=== PATIENT | female | born 1955 | race Caucasian/White ===

== ENCOUNTER 2019-10-03 08:19 | Outpatient (CLI) | payer MEDICARE, SELFPAY ==
[2019-10-03] MEDS: ZOLEDRONIC ACID 5 MG/100 ML 100 ML 400 MG IVPB (09:15)
--- NOTE | 2019-10-03 09:37 | PC.NURSE ---
Here for Reclast infusion. Medications explained and handouts given on med. No concerns voiced. Reclast infusion administered. Patient tolerated it well. Safe exit of hospital.
== END 2019-10-03 08:20 | disposition home or self-care (01) ==
LOC: CHSTREATRM 08:23
PROVIDERS: PCP Internal Medicine; Visit Provider Internal Medicine
DX: M81.0 Age-related osteoporosis without current pathological fracture (principal)
CPT/HCPCS: 96365; J3489

== ENCOUNTER 2020-02-11 07:44 | Outpatient (CLI) | payer MEDICARE, SELFPAY ==
[2020-02-13 12:13] LABS: SARS-CoV-2 RNA PCR Positive
== END 2020-02-11 07:45 | disposition home or self-care (01) ==
LOC: CHSLAB 07:48
PROVIDERS: PCP Internal Medicine; Visit Provider Internal Medicine
DX: U07.1 COVID-19 (principal)
CPT/HCPCS: 87635; C9803; U0003

== ENCOUNTER 2020-10-09 10:55 | Outpatient (CLI) | payer MEDICARE, SELFPAY ==
[2020-10-09] MEDS: ZOLEDRONIC ACID 5 MG/100 ML 100 ML 400 MG IVPB (11:33)
--- NOTE | 2020-10-09 12:45 | PC.NURSE ---
Tolerated yearly Reclast IV infusion well. No concerns voiced. Safe exit of hospital.
== END 2020-10-09 10:56 | disposition home or self-care (01) ==
PROVIDERS: PCP Internal Medicine; Visit Provider Internal Medicine
DX: M81.0 Age-related osteoporosis without current pathological fracture (principal)
CPT/HCPCS: 96365; J3489

== ENCOUNTER 2020-10-10 07:28 | Outpatient (CLI) | payer MEDICARE, SELFPAY ==
[2020-10-10 08:02] LABS: Hematocrit 37.3 % (35.0-42.0); Hemoglobin 12.6 g/dL (11.7-13.8); Mean Corpuscular HGB Conc 33.8 g/dL (32.0-36.0); Mean Corpuscular Hemoglobin 29.3 pg (27.0-31.0); Mean Corpuscular Volume 86.7 fL (78.0-102.0); Mean Platelet Volume 10.2 fl (9.2-11.8); Platelet Count Result 193 K/mm3 (150-420); Red Cell Distribution Width 12.7 % (11.6-14.4); White Blood Count 3.9 K/mm3 (4.8-10.8)
[2020-10-10 08:47] LABS: Band Neutrophils Percent 1 % (0-6); Basophils Percent Manual 0 % (0-1); Eosinophils Percent Manual 0 % (1-6); Lymphocytes Absolute Manual 0.97 K/mm3 (1.1-4.5); Lymphocytes Percent Manual 25 % (18-44); Monocytes Absolute Manual 0.46 K/mm3 (0.1-0.90); Monocytes Percent Manual 12 % (3-9); Neutrophils Absolute Manual 2.34 K/mm3 (1.7-7.2); Neutrophils Percent Manual 59 % (46-73); Total Cells Counted 100
[2020-10-10 08:48] LABS: Platelet Estimate Adequate (Adequate)
[2020-10-10 08:49] LABS: Alanine Aminotransferase 36 U/L (14-59); Alkaline Phosphatase 59 U/L (46-116); Anion Gap 8 mmol/L (8-16); Aspartate Amino Transferase 18 U/L (15-37); Bilirubin,Total 0.6 mg/dL (0.00-1.00); Blood Urea Nitrogen 25 mg/dL (7-18); Calcium 8.6 mg/dL (8.5-10.1); Carbon Dioxide 27 mmol/L (21-32); Chloride 104 mmol/L (98-108); Cholesterol 183 mg/dL (0-200); Estimated Glomerular Filt Rate > 60; Free T3 2.89 pg/mL (2.18-3.98); Glucose 91 mg/dL (70-99); HDL Direct 66 mg/dL (40-60); LDL Cholesterol Calculated 102 mg/dL (<130); Osmolality Calculated 292 mOsm/kg (285-295); Potassium 4.1 mmol/L (3.5-5.1); Sodium 139 mmol/L (136-145); Thyroid Stimulating Hormone 2.52 uIU/mL (0.36-3.74); Triglycerides 75 mg/dL (0-150)
[2020-10-10 13:45] LABS: Add Urine Microscopic? NO; Appearance Urine Clear (Clear); Bilirubin Urine Negative (Negative); Blood Urine Negative (Negative); Color Urine Yellow (Yellow); Glucose Urine UA Negative (Negative); Ketones Urine Negative (Negative); Leukocyte Esterase Ur Negative (Negative); Nitrate Urine Negative (Negative); Protein Urine Negative (Negative); Urobilinogen Urine 0.2 mg/dL (0.2-1.0); pH Urine 5.5 (5.0-8.0)
[2020-10-14 11:30] LABS: Vitamin D 25 Hydroxy 32 ng/mL (30-100)
== END 2020-10-10 07:29 | disposition home or self-care (01) ==
PROVIDERS: PCP Internal Medicine; Visit Provider Internal Medicine
DX: M81.0 Age-related osteoporosis without current pathological fracture (principal); Z00.00 Encounter for general adult medical examination without abnormal findings; Z79.899 Other long term (current) drug therapy
CPT/HCPCS: 36415; 80053; 80061; 81003; 82306; 84439; 84443; 84481; 85025

== ENCOUNTER 2020-10-25 08:35 | Outpatient (CLI) | payer MEDICARE, SELFPAY ==
--- NOTE | ~2020-10-25 | MM_ITS ---
EXAMINATION: MM screening [facility] BI w esequiel HISTORY: Screening mammogram TECHNIQUE: Craniocaudal and mediolateral oblique 3-D tomosynthesis images were obtained and synthetic 2-D images were generated. CAD analysis was submitted and interpreted. COMPARISON: 01/13/2019, 01/10/2019, 04/07/2017 BREAST PARENCHYMAL COMPOSITION: The breasts are heterogeneously dense, which may obscure small masses . FINDINGS: There is no evidence of suspicious mass, calcification, or architectural distortion to sugg est malignancy in either breast. There has been no suspicious interval change. IMPRESSION: 1. No mammographic evidence of malignancy. 2. Recommend routine screening mammography in one year. BI-RADS Category 1: Negative Reviewed, dictated and finalized at location A.
== END 2020-10-25 08:36 | disposition home or self-care (01) ==
LOC: CHSIMG 08:37
PROVIDERS: PCP Internal Medicine; Visit Provider Internal Medicine
DX: Z12.31 Encounter for screening mammogram for malignant neoplasm of breast (principal)
CPT/HCPCS: 77063; 77067

== ENCOUNTER 2020-11-12 08:57 | Outpatient (CLI) | payer MEDICARE, SELFPAY ==
[2020-11-12 09:22] LABS: Basophils Absolute Auto 0.03 K/mm3 (0.00-0.10); Basophils Percent Auto 0.7 % (0.0-1.0); Eosinophils Percent Auto 2.3 % (1.0-6.0); Hematocrit 37.5 % (35.0-42.0); Hemoglobin 12.8 g/dL (11.7-13.8); Immature Granulocyte Absolute 0.02 K/mm3 (0.00-0.00); Immature Granulocyte Percent A 0.5 % (0.0-0.0); Lymphocytes Absolute Auto 1.18 K/mm3 (1.10-4.50); Lymphocytes Percent Auto 27.1 % (18.0-42.0); Mean Corpuscular HGB Conc 34.1 g/dL (32.0-36.0); Mean Corpuscular Hemoglobin 29.7 pg (27.0-31.0); Mean Platelet Volume 10.4 fl (9.2-11.8); Monocytes Absolute Auto 0.43 K/mm3 (0.10-0.90); Monocytes Percent Auto 9.9 % (2.0-11.0); Neutrophils Absolute Auto 2.6 K/mm3 (1.7-7.2); Neutrophils Percent Auto 59.5 % (50.0-70.0); Platelet Count Result 198 K/mm3 (150-420); Red Blood Count 4.31 M/mm3 (4.20-5.40); Red Cell Distribution Width 12.1 % (11.6-14.4); White Blood Count 4.4 K/mm3 (4.8-10.8)
== END 2020-11-12 08:58 | disposition home or self-care (01) ==
LOC: CHSLAB 08:59
PROVIDERS: PCP Internal Medicine; Visit Provider Internal Medicine
DX: D72.819 Decreased white blood cell count, unspecified (principal)
CPT/HCPCS: 36415; 85025

== ENCOUNTER 2021-07-17 12:34 | Outpatient (CLI) | payer MEDICARE, SELFPAY ==
--- NOTE | ~2021-07-17 | DEXA_ITS ---
Bone Density Report Name: GERARDO MOYA Age: 65 Sex: Female Ethnicity: White Date of : 1955 Indication: osteopenia; monitoring treatment; height loss; prior fracture; Referring Provider: Ariella Nelson Study: Bone densitometry was performed. Exam Date: July 17, 2021 Accession number: [id number] Bone Density: Region BMD T-score Z-score Classification AP Spine(L1-L4) 0.836 -1.9 0.0 Osteopenia Femoral Neck (Left) 0.654 -1.8 -0.1 Osteopenia Total Hip (Left) 0.788 -1.3 0.1 Osteopenia Femoral Neck (Right) 0.668 -1.6 0.0 Osteopenia Total Hip (Right) 0.839 -0.8 0.5 Normal Femoral Neck Mean 0.661 -1.7 0.0 Osteopenia Total Hip Mean 0.814 -1.1 0.3 Osteopenia World Health Organization criteria for BMD impression classify patients as: Normal (T-score at or above -1.0), Osteopenia (T-score between -1.0 and -2.5), or Osteoporosis (T-score at or below -2.5). 10-year Fracture Risk: FRAX not reported because: Treated for osteoporosis Previous Exams: Region Exam Age BMD T-score BMD Change BMD Change Date g/cm2 vs Baseline vs Previous AP Spine (L1-L4) 07/17/2021 65 0.836 -1.9 -0.089 (-9.6%) -0.041 (-4.7%) 06/23/2019 63 0.877 -1.5 -0.048 (-5.2%) 0.035 (4.1%)* 03/25/2017 61 0.842 -1.9 -0.083 (-9.0%) -0.075 (-8.2%) 11/05/2012 57 0.917 -1.2 -0.008 (-0.9%) 0.025 (2.8%)* 08/06/2010 54 0.891 -1.4 -0.033 (-3.6%) -0.033 (-3.6%) 04/30/2007 51 0.925 -1.1 Total Hip(Left) 07/17/2021 65 0.788 -1.3 -0.133 (-14.4% 0.002 (0.3%)# 06/23/2019 63 0.786 -1.3 -0.135 (-14.7% -0.063 (-7.4%) 03/25/2017 61 0.849 -0.8 -0.072 (-7.9%) -0.012 (-1.4%) 11/05/2012 57 0.861 -0.7 -0.060 (-6.5%) -0.025 (-2.8%) 08/06/2010 54 0.886 -0.5 -0.035 (-3.9%) -0.035 (-3.9%) 04/30/2007 51 0.921 -0.2 Total Hip(Right) 07/17/2021 65 0.839 -0.8 -0.028 (-3.2%) N/A 06/23/2019 63 0.000 0.0 N/A N/A 11/05/2012 57 0.823 -1.0 -0.043 (-5.0%) -0.028 (-3.3%) 08/06/2010 54 0.852 -0.7 -0.015 (-1.7%) -0.015 (-1.7%) 04/30/2007 51 0.867 -0.6 *Denotes significance at 95% confidence level, LSC for AP Spine = 0.022 g/cm2, LSC for Total Hip = 0.027 g/cm2 # Denotes dissimilar scan types or analysis methods Clinical Information Provided by Patient: Has had a low trauma fracture Is being treated for osteoporosis Has used the following medications: Reclast (i.e. zoledronate), Vitamin D Patient maximum height
== END 2021-07-17 12:35 | disposition home or self-care (01) ==
LOC: CHSIMG 12:37
PROVIDERS: PCP Internal Medicine; Visit Provider Internal Medicine
DX: M81.0 Age-related osteoporosis without current pathological fracture (principal)
CPT/HCPCS: 77080

== ENCOUNTER 2021-10-08 10:09 | Outpatient (CLI) | payer MEDICARE, SELFPAY | END 2021-10-08 10:10 | disposition home or self-care (01) | LOC: CHSOUTPT 10:15 | PROVIDERS: PCP Internal Medicine; Visit Provider Specialist | DX: C44.529 Squamous cell carcinoma of skin of other part of trunk (principal) | CPT/HCPCS: 88305 ==

== ENCOUNTER 2021-10-22 08:28 | Outpatient (CLI) | payer MEDICARE, SELFPAY ==
[2021-10-22] MEDS: ZOLEDRONIC ACID 5 MG/100 ML 100 ML 400 MG IVPB (08:55)
[2021-10-22 08:59] VITALS: BP 130/78; PULSE 80; RESP 14; TEMP 36.6; O2SAT 98
[2021-10-22 09:00] VITALS: BMI 28.3
--- NOTE | 2021-10-22 09:03 | PC.NURSE ---
Patient here for yearly IV Reclast infusion. Education on med given. NO concerns voiced. IV Reclast administered. SEE MAR. Safe exit of hospital.
== END 2021-10-22 08:29 | disposition home or self-care (01) ==
LOC: CHSTREATRM 08:36
PROVIDERS: PCP Internal Medicine; Visit Provider Internal Medicine
DX: M81.0 Age-related osteoporosis without current pathological fracture (principal)
CPT/HCPCS: 96365; J3489

== ENCOUNTER 2021-10-28 07:57 | Outpatient (CLI) | payer MEDICARE, SELFPAY ==
--- NOTE | ~2021-10-28 | MM_ITS ---
EXAMINATION: MM screening [facility] BI w esequiel HISTORY: Screening TECHNIQUE: Craniocaudal and mediolateral oblique 3-D tomosynthesis images were obtained and synthetic 2-D images were generated. CAD analysis was submitted and interpreted. COMPARISON: Comparison to multiple prior studies sequentially, with oldest reviewed study dated 08/20. BREAST PARENCHYMAL COMPOSITION: There are scattered areas of fibroglandular density. FINDINGS: There is no evidence of suspicious mass, calcification, or architectural distortion to sugg est malignancy in either breast. There has been no suspicious interval change. IMPRESSION: 1. No mammographic evidence of malignancy. 2. Recommend routine screening mammography in one year. BI-RADS Category 1: Negative Reviewed, dictated and finalized at location A.
== END 2021-10-28 07:58 | disposition home or self-care (01) ==
LOC: CHSIMG 07:59
PROVIDERS: PCP Internal Medicine; Visit Provider Internal Medicine
DX: Z12.31 Encounter for screening mammogram for malignant neoplasm of breast (principal)
CPT/HCPCS: 77063; 77067

== ENCOUNTER 2021-12-11 07:50 | Outpatient (CLI) | payer MEDICARE, SELFPAY ==
[2021-12-11 08:06] LABS: Basophils Absolute Auto 0.02 K/mm3 (0.00-0.10); Basophils Percent Auto 0.4 % (0.0-1.0); Eosinophils Absolute Auto 0.18 K/mm3 (0.02-0.50); Eosinophils Percent Auto 3.7 % (1.0-6.0); Hematocrit 40.2 % (35.0-42.0); Hemoglobin 13.8 g/dL (11.7-13.8); Immature Granulocyte Absolute 0.02 K/mm3 (0.00-0.00); Immature Granulocyte Percent A 0.4 % (0.0-0.0); Lymphocytes Absolute Auto 1.33 K/mm3 (1.10-4.50); Mean Corpuscular HGB Conc 34.3 g/dL (32.0-36.0); Mean Corpuscular Hemoglobin 30.2 pg (27.0-31.0); Mean Platelet Volume 9.5 fl (9.2-11.8); Monocytes Absolute Auto 0.52 K/mm3 (0.10-0.90); Monocytes Percent Auto 10.5 % (2.0-11.0); Neutrophils Absolute Auto 2.9 K/mm3 (1.7-7.2); Platelet Count Result 203 K/mm3 (150-420); Red Blood Count 4.57 M/mm3 (4.20-5.40); Red Cell Distribution Width 11.9 % (11.6-14.4); White Blood Count 4.9 K/mm3 (4.8-10.8)
[2021-12-11 08:22] LABS: Alanine Aminotransferase 32 U/L (14-59); Albumin Level 3.9 g/dL (3.4-5.0); Alkaline Phosphatase 56 U/L (46-116); Anion Gap 6 mmol/L (8-16); Aspartate Amino Transferase 14 U/L (15-37); Bilirubin,Total 0.6 mg/dL (0.00-1.00); Blood Urea Nitrogen 20 mg/dL (7-18); Calcium 8.5 mg/dL (8.5-10.1); Carbon Dioxide 28 mmol/L (21-32); Chloride 105 mmol/L (98-108); Cholesterol 195 mg/dL (0-200); Estimated Glomerular Filt Rate > 60; Glucose 95 mg/dL (70-99); HDL Direct 77 mg/dL (40-60); LDL Cholesterol Calculated 101 mg/dL (<130); Osmolality Calculated 290 mOsm/kg (285-295); Potassium 4.2 mmol/L (3.5-5.1); Sodium 139 mmol/L (136-145); Total Protein 7.1 g/dL (6.4-8.2); Triglycerides 83 mg/dL (0-150)
[2021-12-11 11:37] LABS: Add Urine Microscopic? YES; Appearance Urine Clear (Clear); Bilirubin Urine Negative (Negative); Blood Urine Negative (Negative); Color Urine Light Yellow (Yellow); Glucose Urine UA Negative (Negative); Ketones Urine Negative (Negative); Leukocyte Esterase Ur Trace (Negative); Nitrate Urine Negative (Negative); Protein Urine Negative (Negative); Specific Grav Ur <= 1.005 (1.010-1.020); Urobilinogen Urine 0.2 mg/dL (0.2-1.0)
[2021-12-11 11:42] LABS: Bacteria Urine Trace /hpf; RBC Urine None seen /hpf (0-2); Squamous Epithelial Cell Urine Few /hpf (Few); WBC Urine 0-3 /hpf (0-3)
[2021-12-16 07:58] LABS: Vitamin D 25 Hydroxy 27 ng/mL (30-100)
== END 2021-12-11 07:51 | disposition home or self-care (01) ==
LOC: CHSLAB 07:52
PROVIDERS: PCP Internal Medicine; Visit Provider Internal Medicine
DX: M81.0 Age-related osteoporosis without current pathological fracture (principal); Z00.00 Encounter for general adult medical examination without abnormal findings; Z13.6 Encounter for screening for cardiovascular disorders; Z79.899 Other long term (current) drug therapy
CPT/HCPCS: 36415; 80053; 80061; 81001; 82306; 85025

== ENCOUNTER 2022-10-28 08:50 | Outpatient (CLI) | payer MEDICARE, SELFPAY ==
[2022-10-28 09:07] VITALS: BMI 28.2
[2022-10-28] MEDS: ZOLEDRONIC ACID 5 MG/100 ML 100 ML 400 MG IVPB (09:10)
[2022-10-28 09:18] VITALS: BP 129/68; PULSE 68; RESP 14; TEMP 36.4; O2SAT 99
--- NOTE | 2022-10-28 10:48 | PC.NURSE ---
Patient here for yearly Reclast infusion. Education given. No concerns voiced. IV Reclast infusion administered. SEE MAR. Tolerated well. Safe exit of hospital per ambulatory.
== END 2022-10-28 08:51 | disposition home or self-care (01) ==
LOC: CHSTREATRM 08:54
PROVIDERS: PCP Internal Medicine; Visit Provider Internal Medicine
DX: M81.0 Age-related osteoporosis without current pathological fracture (principal)
CPT/HCPCS: 96374; J3489

== ENCOUNTER 2022-11-28 15:32 | Outpatient (CLI) | payer MEDICARE, SELFPAY ==
[2022-11-28 15:50] LABS: Basophils Absolute Auto 0.03 K/mm3 (0.00-0.10); Basophils Percent Auto 0.5 % (0.0-1.0); Eosinophils Absolute Auto 0.13 K/mm3 (0.02-0.50); Immature Granulocyte Absolute 0.02 K/mm3 (0.00-0.00); Immature Granulocyte Percent A 0.3 % (0.0-0.0); Lymphocytes Absolute Auto 1.67 K/mm3 (1.10-4.50); Lymphocytes Percent Auto 25.8 % (18.0-42.0); Mean Corpuscular HGB Conc 34.1 g/dL (32.0-36.0); Mean Corpuscular Volume 85.1 fL (78.0-102.0); Monocytes Absolute Auto 0.44 K/mm3 (0.10-0.90); Monocytes Percent Auto 6.8 % (2.0-11.0); Neutrophils Absolute Auto 4.2 K/mm3 (1.7-7.2); Neutrophils Percent Auto 64.6 % (50.0-70.0); Platelet Count Result 218 K/mm3 (150-420); Red Blood Count 4.82 M/mm3 (4.20-5.40); Red Cell Distribution Width 12.6 % (11.6-14.4); White Blood Count 6.5 K/mm3 (4.8-10.8)
[2022-11-28 16:21] LABS: Alanine Aminotransferase 34 U/L (14-59); Albumin Level 4.4 g/dL (3.4-5.0); Alkaline Phosphatase 71 U/L (46-116); Anion Gap 9 mmol/L (8-16); Aspartate Amino Transferase 23 U/L (15-37); Bilirubin,Total 0.4 mg/dL (0.00-1.00); Blood Urea Nitrogen 21 mg/dL (7-18); Calcium 9.2 mg/dL (8.5-10.1); Carbon Dioxide 28 mmol/L (21-32); Chloride 103 mmol/L (98-108); Estimated Glomerular Filt Rate 59; Glucose 89 mg/dL (70-99); Osmolality Calculated 292 mOsm/kg (285-295); Potassium 4.3 mmol/L (3.5-5.1); Sodium 140 mmol/L (136-145); Total Protein 7.5 g/dL (6.4-8.2)
[2022-12-03 15:00] LABS: Lyme Disease Ab (IgM), Blot Negative (Negative); Lyme Disease Ab(IgG), Blot Negative (Negative)
== END 2022-11-28 15:33 | disposition home or self-care (01) ==
PROVIDERS: PCP Internal Medicine; Visit Provider Nurse Practitioner Family
DX: T14.8XXA Other injury of unspecified body region, initial encounter (principal); W57.XXXA Bitten or stung by nonvenomous insect and other nonvenomous arthropods, initial encounter
CPT/HCPCS: 36415; 80053; 85025; 86617

== ENCOUNTER 2022-12-09 08:26 | Outpatient (CLI) | payer MEDICARE, SELFPAY ==
--- NOTE | ~2022-12-09 | MM_ITS ---
EXAMINATION: MM screening [facility] BI w esequiel HISTORY: Screening mammogram TECHNIQUE: Craniocaudal and mediolateral oblique 3-D tomosynthesis images were obtained and synthetic 2-D images were generated. CAD analysis was submitted and interpreted. COMPARISON: 10/28/2021, 10/25/2020 BREAST PARENCHYMAL COMPOSITION:There are scattered areas of fibroglandular density. FINDINGS: There are benign intramammary lymph nodes at the far posterior right breast. No suspicious mass, calcification, or architectural distortion are identified in either breast to suggest malignanc y. There has been no suspicious interval change. IMPRESSION: No mammographic evidence of malignancy. Recommend routine screening mammography in one year. BI-RADS Category 2: Benign finding(s). Reviewed, dictated and finalized at location .
[2022-12-09 09:33] LABS: Cholesterol 175 mg/dL (0-200); Free T3 3.06 pg/mL (2.18-3.98); HDL Direct 74 mg/dL (40-60); LDL Cholesterol Calculated 92 mg/dL (<130); Thyroid Stimulating Hormone 2.58 uIU/mL (0.36-3.74); Triglycerides 46 mg/dL (0-150)
[2022-12-09 09:48] LABS: Free T4 Free Thyroxine 1.08 ng/dL (0.76-1.46)
[2022-12-09 14:02] LABS: Appearance Urine Clear (Clear); Bilirubin Urine Negative (Negative); Blood Urine Negative (Negative); Color Urine Yellow (Yellow); Glucose Urine UA Negative (Negative); Ketones Urine Negative (Negative); Leukocyte Esterase Ur Negative (Negative); Nitrate Urine Negative (Negative); Protein Urine Negative (Negative); Specific Grav Ur >= 1.030 (1.010-1.020); Urobilinogen Urine 0.2 mg/dL (0.2-1.0); pH Urine 5.5 (5.0-8.0)
[2022-12-09 14:03] LABS: Add Urine Microscopic? NO
[2022-12-14 20:52] LABS: Vitamin D 25 Hydroxy 27 ng/mL (30-100)
== END 2022-12-09 08:27 | disposition home or self-care (01) ==
PROVIDERS: PCP Internal Medicine; Visit Provider Internal Medicine
DX: M81.0 Age-related osteoporosis without current pathological fracture (principal); M25.511 Pain in right shoulder; Z13.6 Encounter for screening for cardiovascular disorders; Z79.899 Other long term (current) drug therapy; Z12.31 Encounter for screening mammogram for malignant neoplasm of breast
CPT/HCPCS: 36415; 77063; 77067; 80061; 81003; 82306; 84439; 84443; 84481

== ENCOUNTER 2023-08-31 14:19 | Outpatient (CLI) | payer MEDICARE, SELFPAY ==
--- NOTE | ~2023-08-31 | DEXA_ITS ---
Bone Density Report Name: GERARDO MOYA Age: 68 Sex: Female Ethnicity: White Date of : 1955 Indication: postmenopausal; screening for osteoporosis; height loss; prior fracture; Referring Provider: Ariella Nelson Study: Bone densitometry was performed. Exam Date: August 31, 2023 Accession number: [id number] Bone Density: Region BMD T-score Z-score Classification AP Spine(L1-L4) 0.880 -1.5 0.6 Osteopenia Femoral Neck (Left) 0.640 -1.9 -0.1 Osteopenia Total Hip (Left) 0.808 -1.1 0.4 Osteopenia Femoral Neck (Right) 0.667 -1.6 0.2 Osteopenia Total Hip (Right) 0.829 -0.9 0.6 Normal Femoral Neck Mean 0.654 -1.8 0.0 Osteopenia Total Hip Mean 0.818 -1.0 0.5 Normal World Health Organization criteria for BMD impression classify patients as: Normal (T-score at or above -1.0), Osteopenia (T-score between -1.0 and -2.5), or Osteoporosis (T-score at or below -2.5). 10-year Fracture Risk: FRAX not reported because: Treated for osteoporosis Clinical Information Provided by Patient: Has had a low trauma fracture Is being treated for osteoporosis Has used the following medications: Reclast (i.e. zoledronate), Vitamin D Patient maximum height was 62 Menopause Age: 48 No regular weight bearing exercise Drinks caffeinated beverages Onset of menses at age 10 Number of children 2 Impression: The patient has low bone mass, based on the Left Femoral Neck T-score. The patient has risk factors, including: previous fracture. Discussion: It is important to ask patients whether they are taking their medications and to encourage continued and appropriate compliance with their osteoporosis therapies to reduce fracture risk. It is also important to review their risk factors and encourage appropriate calcium and vitamin D intakes, exercise, fall prevention and other lifestyle measures. Follow-Up: Consider a repeat BMD and Vertebral Fracture Assessment (VFA) exam in 2 years or sooner if medically necessary, to reassess this patient's status. Reported by: Dr. Chris Posey on 08/31/2023 2:42:00 PM. Reviewed, dictated and finalized at location A.
== END 2023-08-31 14:20 | disposition home or self-care (01) ==
LOC: CHSIMG 14:19
PROVIDERS: PCP Internal Medicine; Visit Provider Internal Medicine
DX: Z78.0 Asymptomatic menopausal state (principal); M85.89 Other specified disorders of bone density and structure, multiple sites
CPT/HCPCS: 77080

== ENCOUNTER 2023-10-13 21:28 | Emergency (ER) | payer MEDICARE, SELFPAY ==
--- NOTE | ~2023-10-13 | CT_ITS ---
EXAMINATION: CT brain wo con DATE: 10/13/2023 22:18 INDICATION: Trauma to the head after fall TECHNIQUE: Computed tomography (CT) of the head was performed without intravenous contrast. The dose- length product was 605.33 mGy-cm. Automated exposure control and iterative reconstruction technique w ere employed. COMPARISON: MRI brain dated 11/15/2010 FINDINGS: There is a small subdural hemorrhage along the interhemispheric fissure, best seen on coron al images 44-47. No significant mass effect. No ventriculomegaly or midline shift. Basilar cisterns a re patent. Paranasal sinuses and mastoids are pneumatized. No depressed skull fractures. Midline sagi ttal images demonstrate a normal corpus callosum and craniovertebral junction. No evidence for acute infarction, mass or mass effect. IMPRESSION: 1. Small left-sided subdural hemorrhage along the interhemispheric fissure without significant mass e ffect. Reviewed, dictated and finalized at location A. IMPRESSION: 1. Small left-sided subdural hemorrhage along the interhemispheric fissure with out significant mass effect.
--- NOTE | ~2023-10-13 | CT_ITS ---
EXAMINATION: CT cervical spine wo con DATE: 10/13/2023 22:17 INDICATION: Status post fall. Neck pain. TECHNIQUE: Computed tomography (CT) of the cervical spine was performed without intravenous contrast. The dose-length product was 374 mGy-cm. Automated exposure control and iterative reconstruction tech nique were employed. COMPARISON: None FINDINGS: There is mild levoscoliosis. Straightening of cervical lordosis. Vertebral body heights are maintained. No evidence for perched facet. Odontoid process is normal. Craniovertebral junction is n ormal. No evidence for perched facet. There is mild multilevel uncinate hypertrophy. No significant p araspinal soft tissue abnormality. Odontoid process is normal. Lateral masses normally aligned. There is apical pleural thickening/scarring. No significant paraspinal soft tissue abnormality. IMPRESSION: 1. No acute abnormality of the cervical spine. 2: Mild cervical spondylosis for age. Reviewed, dictated and finalized at location A.
--- NOTE | 2023-10-13 21:41 | ED.FALL ---
HPI - Fall General Chief Complaint: Fall Stated Complaint: Fall/Dizzy Time Seen by Provider: 10/13/23 21:41 Source: patient Mode of arrival: ambulatory Limitations: no limitations History of Present Illness HPI Narrative: Patient is a 68-year-old female who was walking 5 days ago and missed a step and had a ground level fall to the back of the head. patient is having some lightheaded and dizziness since the fall. MD complaint: fall Onset (ago): day(s) (4) Fall from: other ( Ground level fall) Fall witnessed: yes, by bystander Place fall occurred: street Loss of consciousness: yes Length of LOC: second(s) Prolonged down time: no Symptoms prior to fall: none Context: tripped/slipped Location of injury: head and neck Severity: mild Severity scale (1-10): 3 Quality: sharp Associated symptoms (after fall): neck pain Related Data Home Medications Medication Instructions Recorded Confirmed celecoxib 200 mg capsule (Celebrex) 200 mg PO DAILY 06/12/21 10/28/22 cholecalciferol (vitamin D3) 25 25 mcg PO DAILY 06/12/21 10/28/22 mcg (1,000 unit) capsule zoledronic acid 5 mg/100 mL in 5 ea IV 4XW 06/12/21 10/28/22 mannitol 5 %-water intravenous piggybck (Reclast) Allergies Allergy/AdvReac Type Severity Reaction Status Date / Time No Known Allergies Allergy Verified 10/13/23 21:44 Review of Systems Review of Systems: All systems reviewed & are unremarkable except as noted in HPI and below Constitutional: Constitutional: Reports no additional constitutional complaints Eyes: Eyes: Reports no additional eye complaints ENT: Reports system reviewed and no additional complaints, except as documented Cardiovascular: Cardiovascular: Reports no additional cardiovascular complaints Respiratory: Respiratory: Reports no additional respiratory complaints Gastrointestinal: Gastrointestinal: Reports no additional gastrointestinal complaints Genitourinary: Genitourinary: Reports no additional female genitourinary complaints Musculoskeletal: Musculoskeletal: Reports no additional musculoskeletal complaints Integumentary/Breasts: Skin/Breast: Reports system reviewed and no additional complaints, except as docu Neurologic: Reports system reviewed and no additional complaints, except as documented Psychiatric: Psychiatric: Reports no additional psychiatric complaints Endocrine: Endocrine: Reports no additional endocrine complaints Hematologic/Lymphatic: Hematologic/Lymphatic: Reports no additional hematologic/lymphatic complaints Allergic/Immunologic: Allergic/Immunologic: Reports no additional allergic/immunologic complaints PMFSH Past Medical History Medical History Arthritis History of ectopic Osteoporosis Surgical History Surgical History History of bilateral salpingectomy after ectopic History of section x 2 History of knee replacement History of rotator cuff surgery History of tubal ligation Family History Family History Father Family history of malignant neoplasm of brain Social History Social History Smoking status: Former smoker Alcohol intake: current Substance use: never Exam Const: General: healthy appearing Nutritional Appearance: well nourished Orientation/consciousness: patient oriented x3 HENMT: Head: normal to inspection Ears: external ears normal Face/Nose/Sinus: Normal external nose present Eyes: Conjunctivae: conjunctivae normal Pupils: Equal, round and reactive pupils present EOM: EOMs intact bilaterally Neck: Neck: normal visual inspection Chest: Chest palpation & inspection: normal inspection of the chest Resp: Effort & Inspection: normal respiratory effort and not labored Auscultation: clear to auscultation b
[2023-10-13 21:45] VITALS: BP 179/100; PULSE 60; RESP 18; O2SAT 97
[2023-10-13 22:38] VITALS: BP 160/80; PULSE 64; RESP 18; O2SAT 98
[2023-10-13 22:53] LABS: Basophils Absolute Auto 0.03 K/mm3 (0.00-0.10); Basophils Percent Auto 0.5 % (0.0-1.0); Eosinophils Absolute Auto 0.12 K/mm3 (0.02-0.50); Hematocrit 40.1 % (35.0-42.0); Hemoglobin 13.5 g/dL (11.7-13.8); Immature Granulocyte Absolute 0.02 K/mm3 (0.00-0.00); Immature Granulocyte Percent A 0.3 % (0.0-0.0); Mean Corpuscular HGB Conc 33.7 g/dL (32-36); Mean Corpuscular Hemoglobin 29.7 pg (27.0-31.0); Mean Corpuscular Volume 88.3 fL (78.0-102.0); Mean Platelet Volume 9.7 fl (9.2-11.8); Monocytes Absolute Auto 0.54 K/mm3 (0.10-0.90); Neutrophils Absolute Auto 3.79 K/mm3 (1.70-7.20); Neutrophils Percent Auto 63.2 % (50.0-70.0); Platelet Count Result 210 K/mm3 (150-420); Red Blood Count 4.54 M/mm3 (4.20-5.40)
[2023-10-13 23:03] LABS: Chloride 103 mmol/L (98-108); Potassium 4.2 mmol/L (3.5-5.1); Sodium 141 mmol/L (136-145)
[2023-10-13 23:08] LABS: INR 0.9; Partial Thromboplastin Time 25.7 Sec (23.9-30.70); Prothrombin Time 10.4 Seconds (9.50-12.1)
[2023-10-13 23:10] LABS: Anion Gap 8 mmol/L (4-12); Carbon Dioxide 30 mmol/L (21-32)
[2023-10-13 23:23] LABS: Alanine Aminotransferase 25 U/L (14-59); Albumin Level 4.3 g/dL (3.4-5.0); Alkaline Phosphatase 58 U/L (46-116); Aspartate Amino Transferase < 10 U/L (15-37); Bilirubin,Total 0.3 mg/dL (0.00-1.00); Blood Urea Nitrogen 25 mg/dL (7-18); Calcium 8.9 mg/dL (8.5-10.1); Estimated CRCL calculation 58 ml/min; Estimated Glomerular Filt Rate > 60; Glucose 102 mg/dL (70-99); Osmolality Calculated 296 mOsm/kg (285-295); Total Protein 7.1 g/dL (6.4-8.2)
[2023-10-13 23:25] VITALS: BP 159/94; PULSE 85; RESP 17; O2SAT 97
[2023-10-13 23:30] VITALS: PULSE 79; RESP 20; O2SAT 96
[2023-10-13 23:31] VITALS: BP 151/90; PULSE 84; RESP 20; O2SAT 99
[2023-10-13] MEDS: LORazepam INJ (*CRX) 2 MG/ML VIAL 0.5 MG IV PUSH (23:44)
[2023-10-13 23:46] VITALS: PULSE 80; RESP 19; O2SAT 97
[2023-10-14] VITALS: PULSE 93; RESP 18; O2SAT 96
--- NOTE | 2023-10-14 00:05 | ECG_ITS ---
Measurements Intervals [place] Rate: 82 P: 27 MS: 151 QRS: 43 QRSD: 105 T: -6 QT: 371 Avg RR 729 QTc: 409 QTcB 434 QTcF 412 Interpretive Statements SINUS RHYTHM NONSPECIFIC T WAVE ABNORMALITY SEE SCANNED COPY FOR SIGNATURE MTDD
[2023-10-14 00:09] VITALS: BP 136/84; PULSE 82; RESP 18; TEMP 37; O2SAT 98
== END 2023-10-14 00:23 | disposition home or self-care (01) ==
PROVIDERS: Emergency Provider Emergency Medicine; PCP Internal Medicine
DX: S09.90XA Unspecified injury of head, initial encounter (principal); W18.39XA Other fall on same level, initial encounter; M81.0 Age-related osteoporosis without current pathological fracture; Z87.891 Personal history of nicotine dependence
CPT/HCPCS: 36415; 70450; 72125; 80053; 85025; 85610; 85730; 93005; 99284; J2060

== ENCOUNTER 2023-10-26 12:24 | Outpatient (CLI) | payer MEDICARE, SELFPAY ==
--- NOTE | ~2023-10-26 | CT_ITS ---
EXAMINATION: CT brain wo con DATE: 10/26/2023 12:56 INDICATION: Head injury. TECHNIQUE: Computed tomography (CT) of the head was performed without intravenous contrast. The mA wa s adjusted according to patient size. Iterative reconstruction technique was employed. The dose-lengt h product was 605.33 mGy-cm. COMPARISON: Head CT 10/13/2023 FINDINGS: There is no acute infarction or abnormal intracranial mass lesion. There is a small subdura l hematoma hematoma at the left side of the falx adjacent to the left parietal lobe with maximum thic kness of 2 mm. The hematoma is now isodense to evans matter. The ventricles are normal in size. The or bits are normal. There is mild mucosal thickening in the paranasal sinuses. The mastoid air cells are normal. IMPRESSION: 1. Stable small subacute left parietal subdural hematoma. Reviewed, dictated and finalized at location E.
== END 2023-10-26 12:25 | disposition home or self-care (01) ==
LOC: CHSIMG 12:26
PROVIDERS: PCP Internal Medicine; Visit Provider Internal Medicine
DX: S06.5X0A Traumatic subdural hemorrhage without loss of consciousness, initial encounter (principal)
CPT/HCPCS: 70450

== ENCOUNTER 2023-11-03 08:55 | Outpatient (CLI) | payer MEDICARE, SELFPAY ==
[2023-11-03] MEDS: DENOSUMAB 60 MG/ML SYRINGE SUB-Q (09:12)
[2023-11-03 09:30] VITALS: BMI 28.2
[2023-11-03 09:53] VITALS: BP 123/71; PULSE 80; RESP 16; TEMP 36.3; O2SAT 98
--- NOTE | 2023-11-03 10:06 | PC.NURSE ---
Patient here for Prolia injection. Education given. All concerns voiced answered. Injection administered. SEE MAR. Tolerated well. OP infusion will call to set up appt for injection. Safe exit of hospital per self/ambulatory.
== END 2023-11-03 10:07 | disposition home or self-care (01) ==
PROVIDERS: PCP Internal Medicine; Visit Provider Internal Medicine
DX: M81.0 Age-related osteoporosis without current pathological fracture (principal)
CPT/HCPCS: 96372; J0897

== ENCOUNTER 2024-01-21 15:44 | Outpatient (CLI) | payer MEDICARE, SELFPAY | END 2024-01-21 15:45 | disposition home or self-care (01) | LOC: CHSIMG 15:48 | PROVIDERS: PCP Internal Medicine; Visit Provider Nurse Practitioner Family | DX: M79.672 Pain in left foot (principal) | CPT/HCPCS: 73630 ==

== ENCOUNTER 2024-02-01 08:54 | Outpatient (RCR) | payer MEDICARE, SELFPAY ==
--- NOTE | 2024-02-01 09:50 | PTOPEVAL1 ---
Assessment and note entered by Aron Ott Evaluation Information Assessment Status Evaluation ICD-10 Condition Codes (PT) M25.572 Onset 02/01/24 Subjective Information Pt. reports she developed plantar fasciitis about 1 year ago. She reports that she was wearing shoes with little support. She states that she changed her footwear and her pain has since become more localized. She describes pain in the area of the left heel. She states that pain is mostly notable with standing and states that her pain will worsen throughout the day. She states that she can walk for about an hour, but states that pain becomes very intense slowing her down. She reports that her goal for therapy is to reduce her left heel/foot pain. Reported Pain Level Pain Score 1: Self Report Assessment PT Clinical Summary Pt. is a 68 year old female who enters the clinic with left foot/heel pain. Pt. presentation is consistent with plantar fasciitis. She presents with impaired ROM , impaired gait and impaired flexibility. continued skilled PT is indicated in order to improve these areas to allow for improved comfort with standing activities. Plan of Care Interventions Electrical Stimulation,Gait Training,Hot Pack/Cold Pack,Manual Therapy,Neuro Re-education,Patient/ Caregiver Educati,Therapeutic Activities, Therapeutic Exercise PT Services Indicated Yes Treatment Frequency and 2x/week x 8 visits Duration These treatments will address the objective and functional deficits as defined above. The patient will be advanced safely and appropriately in order for the patient to progress towards his/her prior level of function. Additional exercises will be introduced and as well as a comprehensive home exercise program upon discharge, if needed, ?to ensure carryover of functional gains achieved in the clinic. This treatment plan has been reviewed and agreement upon by the patient.
--- NOTE | 2024-02-01 09:51 | OPREHPOC ---
Outpatient Therapy Plan of Care This is a Multidisciplinary Plan of Care that may contain components documented by all disciplines (PT, OT, and ST.) PT Problem 1 PT Problem #1 Knowledge Deficit PT Goal 1 Goal Pt. will be independent with a HEP addressing flexibility and strength Target Visit 2 PT Problem 2 PT Problem #2 Impaired Range of Motion PT Goal 1 Goal Pt. will demonstrate 10 degrees bilateral ankle dorsiflexion active ROM Target Visit 8 PT Problem 3 PT Problem #3 Impaired Gait PT Goal 1 Goal Pt. will be able to ambulate a duration of 1 hour with 1/10 pain at worst. PT Problem 4 PT Problem #4 Impaired Functional Mobil PT Goal 1 Goal Pt. will score 68 or better on the LEFS indicating significant functional improvement. Target Visit 8
--- NOTE | 2024-02-25 15:48 | OPREHPOC ---
Outpatient Therapy Plan of Care This is a Multidisciplinary Plan of Care that may contain components documented by all disciplines (PT, OT, and ST.) PT Problem 1 PT Problem #1 Knowledge Deficit PT Goal 1 Goal / Goal Update Pt. will be independent with a HEP addressing flexibility and strength Target Visit 2 Progress Met PT Problem 2 PT Problem #2 Impaired Range of Motion PT Goal 1 Goal / Goal Update Pt. will demonstrate 10 degrees bilateral ankle dorsiflexion active ROM Target Visit 8 Progress Not Met PT Problem 3 PT Problem #3 Impaired Gait PT Goal 1 Goal / Goal Update Pt. will be able to ambulate a duration of 1 hour with 1/10 pain at worst. Progress Not Met PT Problem 4 PT Problem #4 Impaired Functional Mobil PT Goal 1 Goal / Goal Update Pt. will score 68 or better on the LEFS indicating significant functional improvement. Target Visit 8 Progress Met
--- NOTE | 2024-02-25 15:48 | PTOPDC ---
Assessment and note entered by JT File, PT Evaluation Information Assessment Status Discharge ICD-10 Condition Codes (PT) M25.572 Onset 02/01/24 Subjective Information patient reports she continues to have pain in the L heel. she reports the pain has not really changed since therapy. she reports she is leaving to go out of town in a few weeks, and plans to reach out to an ortho when she returns from her trip. Reported Pain Level Pain Score 3: Self Report Assessment PT Clinical Summary mrs. reyna presents to skilled PT services for her 8th skilled PT visit. she continues to have pain in the L heel that has not resolved since starting PT. she presents today with pain with palpation at the L heel, and decreased L ankle DF. she has met HEP and LEFS goal as of this date. she will DC skilled PT and continue with HEP independent at home. she was educated to follow up with MD and get a referral to ORTHO after her trip. she was also advised in the benefit of bilateral heel lifts in the short term. Plan of Care PT Services Indicated Yes
== END 2024-02-25 16:27 | disposition home or self-care (01) ==
LOC: CHSPT 08:54
PROVIDERS: Visit Provider Nurse Practitioner Family
DX: M25.572 Pain in left ankle and joints of left foot (principal)
CPT/HCPCS: 97110; 97140; 97161

== ENCOUNTER 2024-05-04 09:47 | Outpatient (CLI) | payer MEDICARE, SELFPAY ==
[2024-05-04] MEDS: DENOSUMAB 60 MG/ML SYRINGE SUB-Q (10:08)
[2024-05-04 10:26] VITALS: BP 135/71; PULSE 78; RESP 14; TEMP 36.4; O2SAT 97; BMI 29.9
--- NOTE | 2024-05-04 10:28 | PC.NURSE ---
Patient here for every 6 month Prolia injection. Patient last Prolia injection in October 2023 and reports did well with. Education given. No concerns voiced. Prolia injection administered. SEE MAR/patient care notes. Tolerated well.
== END 2024-05-04 10:45 | disposition home or self-care (01) ==
PROVIDERS: PCP Internal Medicine; Visit Provider Internal Medicine
DX: M81.0 Age-related osteoporosis without current pathological fracture (principal)
CPT/HCPCS: 96372; J0897

== ENCOUNTER 2024-07-14 08:09 | Outpatient (CLI) | payer MEDICARE, SELFPAY ==
[2024-07-14 08:39] LABS: Hematocrit 40.3 % (35.0-42.0); Hemoglobin 13.8 g/dL (11.7-13.8); Mean Corpuscular HGB Conc 34.2 g/dL (32-36); Mean Corpuscular Hemoglobin 29.9 pg (27.0-31.0); Mean Corpuscular Volume 87.4 fL (78.0-102.0); Mean Platelet Volume 9.8 fl (9.2-11.8); Platelet Count Result 203 K/mm3 (150-420); Red Blood Count 4.61 M/mm3 (4.20-5.40); Red Cell Distribution Width 12.3 % (11.6-14.4); White Blood Count 5.1 K/mm3 (4.8-10.8)
[2024-07-14 10:05] LABS: Alanine Aminotransferase 30 U/L (14-59); Albumin Level 4.1 g/dL (3.4-5.0); Alkaline Phosphatase 52 U/L (46-116); Anion Gap 8 mmol/L (4-12); Aspartate Amino Transferase 12 U/L (15-37); Bilirubin,Total 0.7 mg/dL (0.00-1.00); Blood Urea Nitrogen 23 mg/dL (7-18); Calcium 8.4 mg/dL (8.5-10.1); Carbon Dioxide 28 mmol/L (21-32); Chloride 104 mmol/L (98-108); Cholesterol 199 mg/dL (0-200); Estimated Glomerular Filt Rate > 60; Free T4 Free Thyroxine 1.03 ng/dL (0.76-1.46); Glucose 86 mg/dL (70-99); HDL Direct 76 mg/dL (40-60); LDL Cholesterol Calculated 107 mg/dL (<130); Osmolality Calculated 292 mOsm/kg (285-295); Potassium 4.3 mmol/L (3.5-5.1); Sodium 140 mmol/L (136-145); Thyroid Stimulating Hormone 2.58 uIU/mL (0.36-3.74); Total Protein 6.8 g/dL (6.4-8.2); Triglycerides 82 mg/dL (0-150)
[2024-07-14 13:41] LABS: Add Urine Microscopic? NO; Appearance Urine Clear (Clear); Bilirubin Urine Negative (Negative); Blood Urine Negative (Negative); Color Urine Light Yellow (Yellow); Glucose Urine UA Negative (Negative); Ketones Urine Negative (Negative); Leukocyte Esterase Ur Negative (Negative); Nitrate Urine Negative (Negative); Protein Urine Negative (Negative); Specific Grav Ur 1.025 (1.010-1.020); Urobilinogen Urine 0.2 mg/dL (0.2-1.0)
[2024-07-15 06:58] LABS: Vitamin D 25 Hydroxy 26 ng/mL (30-100)
== END 2024-07-14 08:10 | disposition home or self-care (01) ==
LOC: CHSLAB 08:11
PROVIDERS: PCP Internal Medicine; Visit Provider Internal Medicine
DX: I10 Essential (primary) hypertension (principal); M81.0 Age-related osteoporosis without current pathological fracture; E78.2 Mixed hyperlipidemia
CPT/HCPCS: 36415; 80053; 80061; 81003; 82306; 84439; 84443; 85027

== ENCOUNTER 2024-09-05 14:35 | Outpatient (CLI) | payer MEDICARE, SELFPAY | END 2024-09-05 14:36 | disposition home or self-care (01) | LOC: CHSIMG 14:36 | PROVIDERS: PCP Internal Medicine; Visit Provider Internal Medicine | DX: Z12.31 Encounter for screening mammogram for malignant neoplasm of breast (principal); Z78.0 Asymptomatic menopausal state; M85.89 Other specified disorders of bone density and structure, multiple sites | CPT/HCPCS: 77063; 77067; 77080 ==

== ENCOUNTER 2024-12-01 08:30 | Outpatient (CLI) | payer MEDICARE, SELFPAY ==
[2024-12-01 08:34] VITALS: BMI 29.8
--- OUTSIDE RECORDS SUMMARY | 2024-12-01 08:34 | XMS_ITS | Referral Summary ---
Author Organization [facility] Address [address] [place] [address] Care Team Providers Care Incident Response Manager Name Role Phone Ariella Nelson MD Primary Care Provider + [phone] Encounters Date Type Department Care Team Description 09/28/2024 Orders Only [facility] Neurosurgery [address] [facility] [address] [place] [address] [place] [address] Nik Gutierrez MD Aneurysm (arteriovenous) of coronary vessels (Primary Dx) from Last 3 Months Allergies No known active allergies Medications amLODIPine (NORVASC) 2.5 mg tablet 11/22/2023 Active celecoxib (CeleBREX) 200 mg capsule 12/08/2023 Active LORazepam (ATIVAN) 1 mg tablet 12/22/2023 Active naproxen (NAPROSYN) 500 mg tablet TAKE 1 TABLET TWICE DAILY AFTER EATING 07/28/2016 Active zolpidem (AMBIEN) 5 mg tablet 4 01/13/2024 Active Active Problems Problem Noted Date Diagnosed Date Subacromial bursitis 06/16/2016 Complete tear of rotator cuff 04/14/2016 Osteoarthritis of acromioclavicular joint 2015 Social History Tobacco Use Types Packs/Day Years Used Date Smoking Tobacco: Former Smokeless Tobacco: Never Tobacco Cessation:Counseling Given: Not Answered AUDIT-C Answer Date Recorded Q1: How often do you have a drink containing alc ohol? Monthly or less 02/16/2024 Q2: How many drinks containi ng alcohol do you have on a typical day when you are drinking? 1 or 2 02/16/2024 Frequency of Binge Drinking Not on file 02/03 Personal Safety Answer Date Recorded Getting School Help Needed Not on file 01/19 Comments Unknown Sex and Gender Information Value Date Recorded Sex Assigned at Not on file Legal Sex Female 5:24 PM [employer] Gender Identity Not on file Sexual Orientation Not on file Last Filed Vital Signs Vital Sign Reading Time Taken Comments Blood Pressure 130/73 02/16/2024 9:22 AM CDT Pulse 75 02/16/2024 9:22 AM CDT Temperature - - Respiratory Rate - - Oxygen Saturation - - Inhaled Oxygen Concentration - - Weight 74.8 kg (165 lb) 02/16/2024 9:22 AM CDT Height 154.9 cm (5' 1) 02/16/2024 9:22 AM CDT Body Mass Index 31.18 02/16/2024 9:22 AM CDT Plan of Treatment Not on file Insurance AET MEDICARE [facility] MEDICARE Address: [facility] [id number] [place] [id number] Care Teams Incident Response Manager Relationship Specialty Start Date End Date Ariella Nelson MD [address] [place] [address] PCP - General 11/03/16
--- OUTSIDE RECORDS SUMMARY | 2024-12-01 08:34 | XMS_ITS | Clinical Summary ---
Author Organization [facility] Address [address] [place] [address] Care Team Providers Care Oncology Rn Name Role Phone Ariella Nelson MD Primary Care Provider + [phone] Allergies No known active allergies Medications amLODIPine [...] cuff 04/14/2016 Osteoarthritis of acromioclavicular joint 2015 Encounters Date Type Department Care Team Description 09/28/2024 Orders Only [facility] Neurosurgery [address] [facility] [address]th [place] [address] [place] [address] Nik Gutierrez MD Aneurysm (arteriovenous) of coronary vessels (Primary Dx) from Last 3 Months Family History Medical History Relation Name Comments Cancer Father Family history of malignant neoplasm - (Added by TW Conv) Relation Name Status Comments Father Social History Tobacco Use Types Packs/Day Years [...] on file 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 Gender Identity Not on file Sexual Orientation Not on file Obstetrics History Last Filed Vital Signs Vital Sign Reading [...] 02/16/2024 9:22 AM CDT Plan of Treatment Health Maintenance Due Date Last Done Comments Breast Cancer Screening-Mammogram 1955 Colon Cancer Screening-Colonoscopy 1955 Depression Screening 1953 Fall Risk Assessment 1955 Hepatitis C Screening 1955 Osteoporosis Screening-Bone Density Scan 1953 Hepatitis B Screening 1971 Well Visit 65+ 2018 Covid-19 Vaccine (5 - 2023-2 5 season) 2024 04/08/2022, 04/09/2021, 08/28/2020, Additional history exists Influenza Vaccine (Season Ended) 2025 06/09/2023, 04/23/2021, 05/01/2020 DTaP/Tdap/Td Vaccine (3 - Td or Tdap) 07/19/2030 07/19/2020, 02/18/2010 Zoster Vaccine Completed 07/01/2019, 04/06, 09/06/2014 Pneumococcal vaccine 65+ Completed 12/21/2019, 06/06 Insurance [employer] MEDICARE Care Teams Oncology Rn Relationship Specialty Start Date End Date Ariella Nelson MD [address] [place] [address] PCP - General 11/03/16
[2024-12-01] MEDS: DENOSUMAB 60 MG/ML SYRINGE SUB-Q (08:39)
[2024-12-01 09:05] VITALS: BP 130/78; PULSE 78; RESP 16; TEMP 36.6; O2SAT 98
== END 2024-12-01 08:31 | disposition home or self-care (01) ==
PROVIDERS: PCP Internal Medicine; Visit Provider Internal Medicine
DX: M81.0 Age-related osteoporosis without current pathological fracture (principal)
CPT/HCPCS: 96372; J0897

== ENCOUNTER 2024-12-21 20:05 | Emergency (ER) | payer MEDICARE, SELFPAY ==
--- NOTE | ~2024-12-21 | XR_ITS ---
HISTORY: fall on an outstretched arm with wrist swelling COMPARISON: None TECHNIQUE: 2 views of the right wrist were performed. FINDINGS: Comminuted impacted fracture of the distal radius is identified, with possible extension into the art icular surface. Dorsal and radial deviation are detected. Fracture of the ulna styloid process is also noted. Diffuse bony demineralization is present, periarticular osteopenia. Significant degenerative disease is identified within the first carpometacarpal joint space. The contour of the distal scaphoid bone is irregular, possibly representing an additional fracture de formity. IMPRESSION: Comminuted impacted fracture of the distal radius with possible extension into the articular surface. Dorsal and radial deviation are present. Ulna styloid process fracture. Irregularity of the contour of the distal scaphoid for which additional fracture deformity is suspect ed. Reviewed, dictated and finalized at location A. IMPRESSION: Comminuted impacted fracture of the distal radius with possible extension into the articular surface. Dorsal and radial deviation are present. Ulna styloid pr ocess fracture. Irregularity of the contour of the distal scaphoid for which additional fractur e deformity is suspected.
--- NOTE | ~2024-12-21 | CT_ITS ---
CLINICAL INDICATION: Scaphoid irregularity on plain radiograph. COMPARISON: Plain radiographic evaluation of the right wrist performed 3 minutes earlier. TECHNIQUE: Computed tomography (CT) of the right wrist was performed without intravenous contrast. Th e dose-length product was 306.85 mGy-cm. FINDINGS/OBSERVATIONS: Redemonstration of a comminuted distal radius fracture, extending into the intra-articular surface. No cortical irregularity is identified within the scaphoid bone on cross sectional imaging. No scapho id fracture is present. Redemonstration of a ulna styloid fracture. IMPRESSION: Redemonstration of a comminuted distal radius fracture extending into the intra-articular surface wit h an accompanying ulnar styloid fracture. No scaphoid fracture is present. No additional fracture deformities are noted. Reviewed, dictated and finalized at location A. IMPRESSION: Redemonstration of a comminuted distal radius fracture extending into the intra -articular surface with an accompanying ulnar styloid fracture. No scaphoid fracture is present. No additional fracture deformities are noted.
[2024-12-21 20:05] VITALS: BP 147/85; PULSE 95; RESP 18; TEMP 36.9; O2SAT 100
--- OUTSIDE RECORDS SUMMARY | 2024-12-21 20:06 | XMS_ITS | Clinical Summary ---
Author Organization [facility] Address [address] [place] [address] Care Team Providers Care Bilingual Kindergarten Teacher Name Role Phone Ariella Nelson MD Primary Care Provider + [phone] Allergies No known active allergies Medications amLODIPine [...] Department Care Team Description 09/28/2024 Orders Only 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
--- OUTSIDE RECORDS SUMMARY | 2024-12-21 20:06 | XMS_ITS | Referral Summary ---
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
--- NOTE | 2024-12-21 20:12 | ED.UPPEXIN ---
HPI - Extremity Injury (Upper) General Chief Complaint: Extremity Injury, Upper Stated Complaint: WRIST INJURY Time Seen by Provider: 12/21/24 20:12 Source: patient Mode of arrival: ambulatory Limitations: no limitations History of Present Illness HPI narrative: 69-year-old female with a history of left total knee replacement, osteoporosis fell on her outstretched right arm while walking out of daughter's house. No head injury. No other injuries noted. No neck or back pain. complaint: injury to: right and wrist Onset (ago): hour(s) ( 1 hour ago) Other Extremity Injury: Right: wrist Handedness: right Place: home Severity: severe Relieving factors: immobilization Exacerbating factors: movement of extremity Associated symptoms: denies other symptoms Treatments prior to arrival: cold therapy Related Data Home Medications ?Medication ?Instructions ?Recorded ?Confirmed ?Last Taken ?Type amlodipine 2.5 mg tablet 2.5 mg PO DAILY 11/03/23 12/01/24 Unknown History lorazepam 1 mg tablet 1 mg PO BID PRN Anxiety 11/03/23 12/01/24 Unknown History zolpidem 5 mg tablet 5 mg PO HS PRN Sleep 11/03/23 12/01/24 Unknown History calcium carbonate (Tums) 400 mg PO DAILY 08/31/24 12/01/24 Unknown History cholecalciferol (vitamin D3) 10 10 mcg PO BID 08/31/24 12/01/24 Unknown History mcg (400 unit) capsule celecoxib 200 mg capsule 200 mg PO DAILY 12/21/24 12/21/24 Unknown History Allergies Allergy/AdvReac Type Severity Reaction Status Date / Time No Known Allergies Allergy Verified 12/21/24 20:13 Review of Systems Review of Systems: All systems reviewed & are unremarkable except as noted in HPI and below PMFSH Past Medical History Medical History Brain aneurysm Brain bleed Osteoporosis Arthritis History of ectopic Surgical History Surgical History History of rotator cuff surgery History of knee replacement History of tubal ligation History of bilateral salpingectomy after ectopic History of section x 2 Family History Family History Father Family history of malignant neoplasm of brain Social History Social History Smoking status: Former smoker Alcohol intake: current Substance use: never Do You Feel Safe in your Home?: Yes Lack of Transportation: No Lack of Food: Never True Current Housing: I Have Housing Concerned About Future Housing: No Difficulty Paying Gas/Electric Bills: No Difficulty Paying for Meds: No Currently Unemployed: No Education: Bachelor's Degree Difficulty w/ Childcare or Family Care: No Exam Narrative: vitals are stable Const: General: no acute distress Orientation/consciousness: patient oriented x3 Limitations: no limitations HENMT: Head: normal to inspection Ears: external ears normal Face/Nose/Sinus: Normal external nose present Face and sinus: normal facial exam Throat: posterior oropharynx normal Eyes: Conjunctivae: conjunctivae normal Pupils: Equal, round and reactive pupils present EOM: EOMs intact bilaterally Direct Ophthalmoscopy: no photophobia Neck: Neck: normal visual inspection and no lymphadenopathy Chest: Chest palpation & inspection: normal inspection of the chest Resp: Effort & Inspection: normal respiratory effort Auscultation: clear to auscultation bilaterally Cardio: Rate: regular rate Rhythm: regular rhythm GI: Auscultation: normal bowel sounds Other: tenderness/rigidity /rebound : General: Yes no CVA tenderness Back/Spine/Pelvis: Back: no CVA tenderness Skin: General skin exam: normal color Rashes: no rashes Wounds: no wounds Neuro: General: patient oriented x3, moves all extremities, no meningeal signs, no focal motor deficits and CN's II-XI intact bilaterally Cranial nerves: Yes Nystagmus not present Speech: normal speech Extrem: General: normal to inspection Other: right wrist has a dinner fork deformity with tenderness over the distal radius. Distal neurovascular bund Psych: Mental Status: mental status grossly normal Affect: normal affect Attitude: cooperative Course Course Emergency Course: Colace fracture-- committed distal radial fracture, ulnar styloid fracture. No scaphoid fracture noted on CT. Placed a sugar-tong splint after application of the splint the distal neurovascular bundle was intact. Explained to the patient about compartment syndrome. Advised her to monitor distal circulation. Advised her to return to the ED pain increases. Vital Signs Vital signs: Vital Signs Temperature 36.9 C 12/21/24 20:05 Pulse Rate 95 12/21/24 20:05 Respiratory Rate 18 12/21/24 20:05 Blood Pressure 147/85 H 12/21/24 20:05 Pulse Oximetry 100 12/21/24 20:05 Oxygen Delivery Room Air 12/21/24 20:05 Temperature 36.9 C 12/21/24 20:05 Pulse Rate 95 12/21/24 20:05 Respiratory Rate 18 12/21/24 20:05 Blood Pressure 147/85 H 12/21/24 20:05 Pulse Oximetry 100 12/21/24 20:05 Oxygen Delivery Room Air 12/21/24 20:05 MDM - Extremity Injury (Upper) MDM Narrative Medical decision making narrative: Accidental fall Colles fracture Differential Diagnosis Differential diagnosis: Likely fracture of wrist Medical Records Attestation: I reviewed the patient's medical records. Discharge Plan Discharge Clinical Impression: Accidental fall Qualifiers: Encounter type: initial encounter Qualified Code(s): W19.XXXA - Unspecified fall, initial encounter Colles' fracture of right radius Qualifiers: Encounter type: initial encounter Fracture type: closed Qualified Code(s): S52.531A - Colles' fracture of right radius, initial encounter for closed fracture Patient Disposition: Home Condition: Stable Instructions: Antibiotic Form, Wrist Fracture in Adults (ED), Splint Care (ED) Patient Language: Icelandic Prescriptions: No Action amlodipine 2.5 mg tablet 2.5 mg PO DAILY zolpidem 5 mg Tablet 5 mg PO HS PRN (Reason: Sleep) lorazepam 1 mg Tablet 1 mg PO BID PRN (Reason: Anxiety) celecoxib 200 mg capsule 200 mg PO DAILY cholecalciferol (vitamin D3) 10 mcg (400 unit) capsule 10 mcg PO BID calcium carbonate [Tums] 200 mg calcium (500 mg) tablet,chewable 400 mg PO DAILY Follow-up/Referrals: Ariella Nelson MD [Primary Care Provider] - Time of Disposition: 21:41
[2024-12-21] MEDS: HYDROmorphone HCL INJ (*CRX) 2 MG/ML VIAL 0.5 MG IM ×2 (20:30→21:48)
[2024-12-21] MEDS: ONDANSETRON HCL ODT 4 MG TABLET PO (20:30)
--- OUTSIDE RECORDS SUMMARY | 2024-12-21 20:44 | XMS_ITS | Referral Summary ---
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
--- OUTSIDE RECORDS SUMMARY | 2024-12-21 20:44 | XMS_ITS | Clinical Summary ---
Author Organization [facility] Address [facility] [place] [address] Care Team Providers Care Paraprofessional Education Assistant Name Role Phone Ariella Nelson MD Primary Care Provider [phone] Social History Tobacco Use Types Packs/Day Years Used Date Smoking Tobacco: Never Assessed Comments Unknown Sex and Gender Information Value Date Recorded Sex Assigned at Not on file Legal Sex Female 11:08 PM CDT Gender Identity Not on file Sexual Orientation Not on file Plan of Treatment Health Maintenance Due Date Last Done Comments Colorectal Cancer Screening Colonoscopy (10 Years) 1953 Hepatitis C 1971 Mammogram Screening 1993 Annual Medicare Wellness Visit 2018 Dexa Scan (General) 2018 COVID-19 Vaccine ( season) 2024 04/08/2022, 04/09/2021, 08/28/2020, Additional history exists RSV Immunization or 60+ Years (1 - 1-dose 75+ series) 2028 DTaP, Tdap and Td Vaccines (3 - Td or Tdap) 07/19/2030 07/19/2020, 02/18/2010 Zoster Vaccines Completed 07/01/2019, 04/06, 09/06/2014 Pneumococcal Vaccine: 50+ Years Completed 12/21/2019, 06/30/2019 Meningococcal B Vaccine Aged Out No l onger eligible based on patient's age to complete this topic Meningococcal Vaccine Aged Out No jonathon laura eligible based on patient's age to complete this topic RSV Immunizations Under 20 Months Aged Out No longer eligible based on patient's age to complete this topic Insurance A[employer]NA Care Teams Paraprofessional Education Assistant Relationship Specialty Start Date End Date Ariella Nelson MD [address] [place] [address] PCP - General INTERNAL MEDICINE 10/20/23
--- OUTSIDE RECORDS SUMMARY | 2024-12-21 20:44 | XMS_ITS | Clinical Summary ---
Author Organization [facility] Address [address] [place] [address] Care Team Providers Care Construction Lineman Name Role Phone Ariella Nelson MD Primary Care Provider + [phone] Allergies No known active allergies Medications amLODIPine [...] Department Care Team Description 09/28/2024 Orders Only [facility] Neurosurgery [address] 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
[2024-12-21] MEDS: PROCHLORPERAZINE MALEATE 5 MG TABLET 10 MG PO (21:50)
--- NOTE | 2024-12-21 21:50 | PC.NURSE ---
Post splint: cap refill and pulses normal after splint application
[2024-12-21 22:21] VITALS: BP 135/78; PULSE 90; RESP 17; TEMP 36.9; O2SAT 100
== END 2024-12-21 22:23 | disposition home or self-care (01) ==
PROVIDERS: Emergency Provider Internal Medicine Critical Care Medicine; PCP Internal Medicine
DX: S52.531A Colles' fracture of right radius, initial encounter for closed fracture (principal); Z87.891 Personal history of nicotine dependence; W18.39XA Other fall on same level, initial encounter
CPT/HCPCS: 29125; 73100; 73200; 96372; 99284; A4565; A9270; J1171

== ENCOUNTER 2025-03-21 14:00 | Outpatient (RCR) | payer MEDICARE, SELFPAY ==
--- NOTE | 2025-01-12 15:40 | OTOPEVAL1 ---
Assessment and note entered by Brigido Montero, CARLOS/Angeles, CHT OT Evaluation Information 01/12/25 Assessment Status Evaluation Diagnosis Right distal radius fracture Subjective Information Patient is s/p ORIF 12/28/24. She is right handed. She reports she has been keeping her shoulder, elbow, and fingers moving. She has been using her left hand for all ADLs at this time. She presents in a removable wrist cock up brace. Reported Pain Level Pain Score 2/10 at rest 7/10 with active ROM Assessment OT Clinical Summary Patient referred to OT with dx of distal radius fracture s/p ORIF. Today we initiated active ROM of the forearm and wrist. Finger and thumb active ROM HEP also issued. She demonstrates excellent understanding of all materials. Continued skilled OT indicated for HEP progression, use of modalities, scar management education, and therapeutic activities to facilitate improved functional use of her right, dominant UE. Plan of Care Interventions Therapeutic Exercise,Manual Therapy,Neuro Re- education,Therapeutic Activities,Hot Pack/Cold Pack,Paraffin OT Services Indicated Yes Treatment Frequency and 1-2x/week for 8 visits Duration Order states 1x/per week and patient could benefit from some weeks of 2x/week as she progresses through her therapy program. These treatments will address the objective and functional deficits as defined above. The patient will be advanced safely and appropriately in order for the patient to progress towards his/her prior level of function. Additional exercises will be introduced and as well as a comprehensive home exercise program upon discharge, if needed, ?to ensure carryover of functional gains achieved in the clinic. This treatment plan has been reviewed and agreement upon by the patient.
--- NOTE | 2025-01-12 15:40 | OPREHPOC ---
Outpatient Therapy Plan of Care This is a Multidisciplinary Plan of Care that may contain components documented by all disciplines (PT, OT, and ST.) OT Problem 1 OT Problem #1 Knowledge Deficit OT Goal 1 Goal / Goal Update 1. Patient to be independent with instructed materials. Target Visit 8 OT Problem 2 OT Problem #2 Impaired Range of Motion OT Goal 1 Goal / Goal Update Patient to increase active ROM of the (R) UE for ADLs/functional use: 1. forearm supination to 75 degrees 2. wrist flexion to 50 degrees 3. wrist extension to 50 degrees 4. thumb composite flexion to be able to touch the base of digit V Target Visit 8
--- NOTE | 2025-02-14 15:24 | OTOPPROG ---
Assessment and note entered by Brigido Montero, CARMENR/L, CHT OT Progress Update 02/14/25 Assessment Status Progress Diagnosis Right distal radius fracture Onset s/p ORIF 12/28/24 Subjective Information Patient reports she is making progress with her dominant right hand/wrist. She reports she is improving in her abilities with using her right hand to brush her hair, open the fridge, getting items out of her purse, eat/use a fork, bathe, and dress herself. She is unable to use a knife to cut a piece of fruit and continues to be limited with any heavy lifting. She reports intermittent paresthesia in the right hand. ROM improvements since the start of care: - supination improved from 30 to 65 degrees - pronation improved from 80 to 85 degrees - wrist flexion improved from 20 to 35 degrees - wrist extension improved from 30 to 40 degrees - wrist RD improved from 10 to 15 degrees - wrist UD improved from 10 to 20 degrees - full fist remained WFL - hook fist improved from 2 cm gap to 0-1 cm gap (R) cable assembler and swager strength 12 lbs. (L) cable assembler and swager strength 39 lbs. Assessment OT Clinical Summary Patient referred to OT with dx of distal radius fracture s/p ORIF. She is making progress with ROM and functional use of the forearm/wrist/hand. She continues to demonstrate residual stiffness and weakness, which limits return of functional use for ADLs. Continued skilled OT indicated for HEP progression, use of modalities, scar management education, and therapeutic activities to facilitate improved functional use of her right, dominant UE. Plan of Care Interventions Therapeutic Exercise,Manual Therapy,Neuro Re- education,Therapeutic Activities,Hot Pack/Cold Pack,Paraffin OT Services Indicated Yes Treatment Frequency and 2x/week for 8 visits Duration These treatments will address the objective and functional deficits as defined above. The patient will be advanced safely and appropriately in order for the patient to progress towards his/her prior level of function. Additional exercises will be introduced and as well as a comprehensive home exercise program upon discharge, if needed, ?to ensure carryover of functional gains achieved in the clinic. This treatment plan has been reviewed and agreement upon by the patient.
--- NOTE | 2025-02-14 15:24 | OPREHPOC ---
Outpatient Therapy Plan of Care This is a Multidisciplinary Plan of Care that may contain components documented by all disciplines (PT, OT, and ST.) OT Problem 1 OT Problem #1 Knowledge Deficit OT Goal 1 Goal / Goal Update 1. Patient to be independent with instructed materials. ---OT POC UPDATE 02/14/25--- 1. Met, continue as HEP is progressed Target Visit 16 OT Problem 2 OT Problem #2 Impaired Range of Motion OT Goal 1 Goal / Goal Update Patient to increase active ROM of the (R) UE for ADLs/functional use: 1. forearm supination to 75 degrees 2. wrist flexion to 50 degrees 3. wrist extension to 50 degrees 4. thumb composite flexion to be able to touch the base of digit V ---OT POC UPDATE 02/14/25--- 1. progressing, continue 2. progressing, continue 3. progressing, continue 4. progressing, continue Target Visit 16
--- NOTE | 2025-03-21 14:47 | OTOPDC ---
Assessment and note entered by Brigido Montero, CARLOS/Angeles, CHT Evaluation Information Assessment Status Discharge Diagnosis Right distal radius fracture Onset s/p ORIF 12/28/24 Subjective Information Patient reports she is making progress with her dominant right hand/wrist. She reports she is improving in her abilities to use her right hand on the steering wheel, carry a laundry basket, fold laundry, push a shopping cart, and open a jar . She feels like she has really turned a corner recently and is very happy with her progress and function. She reports intermittent paresthesia in the hands upon waking up in the morning. ROM improvements since last month (02/18/25): - supination improved from 65 to 80 degrees - pronation remained 85 degrees - wrist flexion remained at 35 degrees - wrist extension improved from 40 to 50 degrees - wrist RD improved from 15 to 20 degrees - wrist UD remained WFL at 20 degrees - full fist remained WFL - hook fist improved to functional limits - thumb ROM is WFL, able to touch base of digit V Reported Pain Level Pain Score 0: Self Report Assessment OT Clinical Summary Patient referred to OT with dx of distal radius fracture s/p ORIF. She has made excellent progress with therapy. She is measuring WFL for forearm rotation, wrist extension, and finger/thumb motion . She is most limited with wrist flexion, which has continued to measure 35 degrees for the last month. She is slowly increasing her activity levels and is incorporating her right, dominant hand into more ADLs with less pain and improved function. Reviewed her HEP today. She demonstrates excellent understanding of all materials. D/C OT with HEP. Patient in agreement with D/C. Plan of Care OT Services Indicated No
--- NOTE | 2025-03-21 14:47 | OPREHPOC ---
Outpatient Therapy Plan of Care This is a Multidisciplinary Plan of Care that may contain components documented by all disciplines (PT, OT, and ST.) OT Problem 1 OT Problem #1 Knowledge Deficit OT Goal 1 Goal / Goal Update 1. Patient to be independent with instructed materials. ---OT POC UPDATE 02/14/25--- 1. Met, continue as HEP is progressed ---OT D/C 03/21/25--- 1. Met Target Visit 16 OT Problem 2 OT Problem #2 Impaired Range of Motion OT Goal 1 Goal / Goal Update Patient to increase active ROM of the (R) UE for ADLs/functional use: 1. forearm supination to 75 degrees 2. wrist flexion to 50 degrees 3. wrist extension to 50 degrees 4. thumb composite flexion to be able to touch the base of digit V ---OT POC UPDATE 02/14/25--- 1. progressing, continue 2. progressing, continue 3. progressing, continue 4. progressing, continue ---OT D/C 03/21/25--- 1. Met 2. Not met 3. Met 4. Met Target Visit 16
== END 2025-03-22 08:38 | disposition home or self-care (01) ==
LOC: ANHGOSHOT 14:00
PROVIDERS: PCP Internal Medicine
DX: S52.501D Unspecified fracture of the lower end of right radius, subsequent encounter for closed fracture with routine healing (principal)
CPT/HCPCS: 97018; 97110; 97140; 97165; 97763

== ENCOUNTER 2025-06-05 13:07 | Outpatient (CLI) | payer MEDICARE, SELFPAY ==
[2025-06-05] MEDS: DENOSUMAB 60 MG/ML SYRINGE SUB-Q (13:27)
[2025-06-05 13:29] VITALS: BP 136/80; PULSE 80; RESP 14; TEMP 36.6; O2SAT 98; BMI 28.0
--- OUTSIDE RECORDS SUMMARY | 2025-06-05 14:14 | XMS_ITS | Clinical Summary ---
Author Organization [facility] Address [facility] [place] [address] Care Team Providers Care Stone Belt Sander Name Role Phone Ariella Nelson MD Primary Care Provider [phone] Social History Tobacco Use Types Packs/Day Years [...] Scan (General) 2018 COVID-19 Vaccine ( season) 2025 04/08/2022, 04/09/2021, 08/28/2020, Additional history exists Influenza Adult (#1) 2025 04/23/2021, 05/01/20 20 RSV Immunization or 60+ Years (1 - 1-dose 75+ series) 2028 DTaP, Tdap and Td Vaccines (3 - Td or Tdap) 07/19/2030 07/19/2020, 02/18/2010 Zoster Vaccines Completed 07/01/2019, 04/06, 09/06/2014 Pneumococcal Vaccine: 50+ Years Completed 12/21/2019, 06/30/2019 Hepatitis A Vaccines Aged Out No long er eligible based on patient's age to complete this topic Meningococcal B Vaccine Aged Out No l onger eligible based on patient's age to complete this topic Meningococcal Vaccine Aged Out No jonathon laura eligible based on patient's age to complete this topic RSV Immunizations Under 20 Months Aged Out No longer eligible based on patient's age to complete this topic Insurance AET[employer] MEDICARE Care Teams Stone Belt Sander Relationship Specialty Start Date End Date Ariella Nelson MD [address] [place] [address] PCP - General INTERNAL MEDICINE 10/20/23
--- OUTSIDE RECORDS SUMMARY | 2025-06-05 14:15 | XMS_ITS | Clinical Summary ---
Author Organization [facility] Address [address] [place] [id number] Care Team Providers Care Auto Winder Name Role Phone Ariella Nelson MD Primary Care Provider [phone] Allergies No known active allergies Medications amLODIPine (NORVASC) 2.5 mg tablet 11/22/2023 Active celecoxib (CeleBREX) 200 mg capsule 12/08/2023 Active LORazepam (ATIVAN) 1 mg tablet 12/22/2023 Active naproxen (NAPROSYN) 500 mg tablet TAKE 1 TABLET TWICE DAILY AFTER EATING 07/28/2016 Active zolpidem (AMBIEN) 5 mg tablet 4 01/13/2024 Active HYDROcodone-kobi taminophen (NORCO) 5-325 mg per tabletIndicatio ns:Pain Take 1-2 tablets by mouth every 4 (four) hours as needed for pain 30 tablet 12/28/2024 Active meloxicam (MOBIC) 7.5 mg tabletIndicatio ns:Closed fracture of multiple carpal bones with routine healing, right Take 1 tablet (7.5 mg total) by mouth nightly as needed for pain 30 tablet 2 02/14/2025 Active cholecalciferol 400 unit capsule Take 10 mcg by mouth 08/31/2024 Active Active Problems Problem Noted Date Diagnosed Date Accidental fall 04/04/2025 Acute vulvitis 04/04/2025 Brain concussion 04/04/2025 Colles' fracture of right radius 04/04/2025 History of left knee replacement 04/04/2025 Syncope 04/04/2025 Closed fracture of right distal radius Subacromial bursitis 06/16/2016 Complete tear of rotator cuff 04/14/2016 Osteoarthritis of acromioclavicular joint 2015 Encounters Date Type Department Care Team Description 04/04/2025 10:00 AM CDT Office Visit [facility] Medicine Orthopaedic Surgery [address] [facility] [address] [place] [address] [place] [address] John Daniel MD Right wrist pain (Primary Dx) 04/04/2025 9:30 AM CDT - 04/04/2025 11:59 PM CDT Hospital Encounter [facility] [address] [place] [address] John Daniel MD Right wrist pain Discharge Disposition: Discharge to home or self care from Last 3 Months Immunizations Immunization Administration Dates Next Due Influenza, Quadrivalent, Hig h Dose, Preservative Free, Intrr 06/09/2023 Influenza, Quadrivalent, Split, Intramuscular Influenza, Quadrivalent, Spl it, Preservative Free, Intramuscular 04/23/2021 Pneumococcal Conjugate PCV 13 12/21/2019 Pneumococcal Polysaccharide PPV23 06/30/2019 Tdap 07/19/2020,02/18/2010 ZOSTER LIVE 09/06/2014 ZOSTER Recombinant 07/01/2019,04/30/2019 Surgical History Surgery Date Site/Laterality Comments SECTION SHOULDER SURGERY CATARACT EXTRACTION, BILATERAL Bilateral KNEE ARTHROPLASTY Left Medical History Medical History Date Comments Hypertension Family History Medical History Relation Name Comments Cancer Father Family history of malignant neoplasm - (Added by TW Conv) Relation Name Status Comments Father Social History Tobacco Use Types Packs/Day Years Used Date Smoking Tobacco: Former Smokeless Tobacco: Never Tobacco Cessation:Counseling Given: Not Answered AUDIT-C Answer Date Recorded Q1: How often do you have a drink containing alc ohol? Monthly or less 12/28/2024 Q2: How many drinks containi ng alcohol do you have on a typical day when you are drinking? 1 or 2 12/28/2024 Q3: How often do you have si x or more drinks on one occasion? Never 12/28/2024 Personal Safety Answer Date Recorded Have you ever been in or are you currently in a harmful physical or emotional relationship or is someone making you feel afraid or unsafe? 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 Gender Identity Not on file Sexual Orientation Not on file Last Filed Vital Signs Vital Sign Reading Time Taken Comments Blood Pressure 144/67 12/28/2024 6:40 PM CDT Pulse 86 12/28/2024 6:40 PM CDT Temperature 36.3 C (97.3 F) 12/28/2024 6:00 PM CDT Respiratory Rate 15 12/28/2024 6:40 PM CDT Oxygen Saturation 94% 12/28/2024 6:40 PM CDT Inhaled Oxygen Concentration - - Weight 74.8 kg (165 lb) 02/14/2025 11:30 AM CDT Height 154.9 cm (5' 1) 02/14/2025 11:30 AM CDT Body Mass Index 31.18 02/14/2025 11:30 AM CDT Plan of Treatment Health Maintenance Due Date Last Done Comments Breast Cancer Screening-Mammogram 1955 Colon Cancer Screening-Colonoscopy 1955 Depression Screening 1955 Hepatitis C Screening 1955 Osteoporosis Screening-Bone Density Scan 1955 Hepatitis B Screening 1971 Well Visit 65+ 2018 Covid-19 Vaccine (5 2024-2 6 season) 2025 04/08/2022, 04/09/2021, 08/28/2020, Additional history exists Influenza Vaccine (#1) 2025 , 04/23/2021, 05/01/2020 Fall Risk Assessment 12/28/2025 12/28/2024 DTaP/Tdap/Td Vaccine (3 - Td or Tdap) 07/19/2030 07/19/2020, 02/18/2010 Zoster Vaccine Completed 07/01/2019, 04/06, 09/06/2014 Pneumococcal vaccine 65+ Completed 12/21/2019, 06/06 Medical Devices Implanted Type Area Business Process Coordinator Device Identifier Shelf Expiration Date Model / Serial / Lot Cell>Point Lcp Combi 47mm 7 Hole Head 2 Hole Shaft 2 Column Variable Angle 02.111.720s - [id number] Implanted:Qty: 1 on 12/28/2024 by John Daniel MD at [facility] Right: Wrist Synthes 02.111.720S / / Synthes 2.7mm 5mm 12mm 2.5mm Self Tap Stardrive Cortical T8 Screw Bone 202.872 - [id number] Implanted:Qty: 1 on 12/28/2024 by John Daniel MD at [facility] Right: Wrist Synthes 202.872 / / Synthes 2.4mm 20mm Self Tap Lock Variable Angle Stardrive T8 Screw Bone 02.210.120 - [id number] Implanted:Qty: 2 on 12/28/2024 by John Daniel MD at [facility] Right: Wrist Synthes 02.210.120 / / Synthes 2.4mm 8mm Self Tap Lock Variable Angle Stardrive T8 Screw Bone 02.210.108 - [id number] Implanted:Qty: 1 on 12/28/2024 by John Daniel MD at [facility] Right: Wrist Synthes 02.210.108 / / Synthes 2.4mm 16mm Self Tap Lock Variable Angle Stardrive T8 Screw Bone 02.210.116 - [id number] Implanted:Qty: 1 on 12/28/2024 by John Daniel MD at [facility] Right: Wrist Synthes 02.210.116 / / Synthes 2.4mm 18mm Self Tap Lock Variable Angle Stardrive T8 Screw Bone 02.210.118 - [id number] Implanted:Qty: 1 on 12/28/2024 by John Daniel MD at [facility] Right: Wrist Synthes 02.210.118 / / Procedures Procedure Name Priority Date/Time Associated Diagnosis Comments XR WRIST RIGHT 3 OR MORE VIEWS Schedule Routine, Read Routine (OP Routine) 04/04/2025 9:50 AM CDT Right wrist pain from Last 3 Months Results * X-ray wrist right 3+ views (04/04/2025 9:50 AM CDT) Anatomical Region Laterality Modality Upper Extremities, Wrist Right Compute d Radiography 04/04/2025 10:5 7 AM CDT Impressions 04/04/2025 10:57 AM CDT 1. Interval reduction and fixation of a distal right radius fracture which is now in near-anatomic alignment. Electronically signed by: Hipolito Jovel MD Narrative 04/04/2025 10:57 AM CDT EXAMINATION: XR WRIST RIGHT 3 OR MORE VIEWS HISTORY: Fracture, wrist COMPARISON: 12/21/2024 FINDINGS: Postoperative changes from reduction and internal fixation of a distal right radius fracture which is now in near-anatomic alignment. No periprosthetic fracture or lucency. Hardware is intact. Procedure Note Hipolito Jovel MD - 04/04/2025 EXAMINATION: XR WRIST RIGHT 3 OR MORE VIEWS HISTORY: Fracture, wrist COMPARISON: 12/21/2024 FINDINGS: Postoperative changes from reduction and internal fixation of a distal right radius fracture which is now in near-anatomic alignment. No periprosthetic fracture or lucency. Hardware is intact. IMPRESSION: 1. Interval reduction and fixation of a distal right radius fracture which is now in near-anatomic alignment. Electronically signed by: Hipolito Jovel MD John Daniel MD IMG XR PROCEDURES Final Resul t from Last 3 Months Insurance AET[employer] MEDICARE [facility] MEDICARE Care Teams Auto Winder Relationship Specialty Start Date End Date Ariella Nelson MD [address] [place] [address] PCP - General 11/03/16
== END 2025-06-05 13:08 | disposition home or self-care (01) ==
PROVIDERS: PCP Internal Medicine; Visit Provider Internal Medicine
DX: M81.0 Age-related osteoporosis without current pathological fracture (principal)
CPT/HCPCS: 96372; J0897